=== PATIENT | male | born 1975 | race Two or more races ===

== ENCOUNTER 2018-04-19 02:53 | Outpatient (CLI) | payer SELFPAY ==
[2018-04-19 08:43] LABS: HEMOGLOBIN A1C 9.9 % (4.5-6.2)
[2018-04-19 08:54] LABS: CHOL/HDL RATIO 6.76 (0.00-4.99)
== END 2018-04-19 23:59 | disposition home or self-care (01) ==
LOC: HW HEART 02:53
DX: Z13.6 Encounter for screening for cardiovascular disorders (principal)
CPT/HCPCS: 36415

== ENCOUNTER 2022-10-07 15:15 | Emergency (ER) | payer MEDICAID, SELFPAY ==
[~2022-10-07] VITALS: Ht 180.3 cm; Wt 100.0 kg
[2022-10-07 15:43] VITALS: TEMP 98
[2022-10-07 17:11] VITALS: BP 123/83; PULSE 83; RESP 16; O2SAT 100
[2022-10-07] MEDS ORDERED: FLAS1EAC (20:20)
== END 2022-10-07 20:59 | disposition home or self-care (01) ==
LOC: ER 15:16
DX: E11.65 Type 2 diabetes mellitus with hyperglycemia (principal); R42 Dizziness and giddiness; F41.9 Anxiety disorder, unspecified
CPT/HCPCS: 82948; 93005; 99284

== ENCOUNTER 2023-06-10 14:22 | Outpatient (CLI) | payer MEDICAID ==
[~2023-06-10 14:22] MED LIST: FLAS1EAC
== END 2023-06-10 23:59 | disposition home or self-care (01) ==
LOC: RAD 14:22
PROVIDERS: ATTEND Nurse Practitioner Family
DX: R05.3 Chronic cough (principal)
CPT/HCPCS: 71046